=== PATIENT | female | born 1995 | race Caucasian/White ===

== ENCOUNTER 2020-05-12 18:20 | Emergency (ER) | payer OTHER, SELFPAY ==
--- NOTE | 2020-05-12 | US_ITS ---
EXAMINATION: US PELVIS COMPLETE CLINICAL INFORMATION: Right-sided pain. COMPARISON: None. TECHNIQUE: Real-time grayscale and Doppler ultrasound of the pelvis was performed using transabdominal and transvaginal approaches. FINDINGS: The uterus is of normal size and echogenicity measuring 6.2 x 2.4 x 3.5 cm. The uterus is anteverted. A regular homogeneous endometrial echo is identified measuring 0.1 cm. Both ovaries are of normal size and echogenicity. The right ovary measures 2.6 x 1.5 x 1.8 cm for a volume of 4 mL. No ovarian or adnexal masses are seen on the right. With color Doppler imaging, normal arterial and venous waveforms are seen in the right ovary. The left ovary measures 2.2 x 2.1 x 2.5 cm for a volume of 6 mL. No ovarian or adnexal masses are seen on the left. With color Doppler imaging, normal arterial and venous waveforms are seen in the left ovary. There is no pelvic free fluid. IMPRESSION: 1. Unremarkable pelvic ultrasound.
--- NOTE | 2020-05-12 | CT_ITS ---
EXAMINATION: CT ABDOMEN AND PELVIS WITH CONTRAST CLINICAL INFORMATION: Right lower quadrant pain COMPARISON: None TECHNIQUE: Multidetector volumetric images were obtained from the superior aspect of the liver through the pubic symphysis following administration 85 mL of Omnipaque 350 intravenous contrast. Sagittal and coronal reformatted images were obtained on the technologist's workstation. Oral contrast: No This CT examination was performed using dose optimization techniques as appropriate, variously including the following: *Automated exposure control *Adjustment of mA and/or kV according to patient size (this includes techniques or standardized protocols for targeted exams where dose is matched to indication/reason for exam; i.e. extremities or head) *Use of iterative reconstruction technique DLP: 568 mGy-cm FINDINGS: LUNG BASES: The visualized lung bases are unremarkable. LIVER, GALLBLADDER, AND BILIARY TREE: The liver is normal in size, shape, and attenuation. No focal hepatic lesion or biliary ductal dilatation is present. Cholecystectomy. PANCREAS: Unremarkable. SPLEEN: Unremarkable. ADRENAL GLANDS: Unremarkable. KIDNEYS AND URETERS: The kidneys are normal in size, shape, and attenuation. No hydronephrosis, hydroureter, or calculi seen. No perinephric stranding. BLADDER: Unremarkable. GASTROINTESTINAL TRACT: The stomach is unremarkable. Normal caliber small bowel. There is no obstruction. No colonic wall thickening or acute inflammatory change. Normal appendix. No free air or free fluid. ABDOMINAL WALL: No significant hernia is appreciated. LYMPH NODES: Normal. VASCULAR: Unremarkable. PELVIC VISCERA: The uterus and adnexa are unremarkable. OSSEOUS STRUCTURES: No acute or suspicious osseous abnormality. IMPRESSION: No acute findings of the abdomen or pelvis. No inflammatory changes. Normal appendix.
[2020-05-12 19:16] VITALS: BP 138/91; PULSE 83; RESP 16; TEMP 36.9; O2SAT 99; BMI 29.2
--- NOTE | 2020-05-12 19:22 | ED_ITS ---
HPI - Abdominal Pain General Chief Complaint: Abdominal Pain Stated Complaint: abdominal pain Time Seen by Provider: 05/12/20 19:17 Source: patient Mode of arrival: ambulatory History of Present Illness HPI narrative: patient with right lower quadrant abdominal pain for 1 day. Positive nausea. No diarrhea no vomiting. No fevers no chills. Patient states of mild vaginal spotting however no dysuria or hematuria dysuria denies trauma n onradiating MD elicited complaint: abdominal pain Onset (ago): day(s) ( 1 day) Pain Consistency: constant Location: RLQ Severity: moderate Pain scale (0-10): 5 Quality: sharp Associated symptoms: nausea Related Data Patient : No Allergies Allergy/AdvReac Type Severity Reaction Status Date / Time No Known Allergies Allergy Unverified 04/21/20 17:01 Review of Systems Comments: Constitutional : No Weight loss, No Fever, No Chills, No Night Sweats, No Fatigue, No Malaise ENT/Mouth : No Hearing loss, No Ear Pain, No Nasal Congestion, No Sinus Pain, No Hoarseness, No sore throat, No Rhinorrhea, No Swallowing Difficulty Eyes: No Eye Pain, No Swelling, No Redness, No Foreign Body, No Discharge, No Vision Changes Cardiovascular : No Chest Pain, No SOB, No Dyspnea on Exertion, No Orthopnea, No Edema, No Palpitations Respiratory : No Cough, No Sputum, No Wheezing, No Smoke Exposure, No Dyspnea Gastrointestinal : positive Nausea, No Vomiting, No Diarrhea, No Constipation, positive abdominal Pain, No Hematochezia, No Melena Genitourinary : mild bleeding, No Dysuria, No Urinary Frequency, No Hematuria, No Urinary Incontinence, No Urgency, No Flank Pain, No Urinary Flow Changes, No Hesitancy Musculoskeletal : No joint pain, No Myalgias, No Joint Swelling Skin : No Skin Lesions, No rash Neuro : No Weakness, No Numbness, No Paresthesias, No Loss of Consciousness, No Dizziness, No Headache Psych : No Anxiety/Panic, No Depression, No SI/HI/AH/VH, No Social Issues, Heme/Lymph: No Bruising, No Bleeding,No Lymphadenopathy Endocrine : No Polyuria, No Polydipsia, No Temperature Intolerance Physical Exam Const: Other: Appearance: Alert. Oriented X3. No acute distress. Eyes: Pupils equal, round and reactive to light. ENT: Pharynx normal. Neck: Normal inspection. Neck supple. No lymph nodes noted. No crepitus CVS: Normal heart rate and rhythm. Pulses normal. Normal S1 and S2 Respiratory: No respiratory distress. Breath sounds normal. No Wheezing. No rales Abdomen: Soft and positive tender right lower quadrant. No rigidity. No distention. good BS x4 Skin: Skin warm and dry. Normal skin color. Normal skin turgor. Extremities: No lower extremity edema. No lower extremity edema. No Lacerations. No Rash Neuro: Oriented X 3. No motor deficit. No sensory deficit. Moving all extermities. No slurred speech. MDM - Abdominal Pain Differential Diagnosis Differential diagnosis narrative:: diverticulitis, appendicitis, ovarian cyst, ovarian torsion PMFSH Past Medical History Medical History FH: cholecystectomy Surgical History History of cholecystectomy Social History Social History (Updated 05/12/20 @ 19:24 by Jovon Jackson DO) Household Members: Family
[2020-05-12 19:47] LABS: MANUAL DIFF FLAG NO
[2020-05-12 19:48] LABS: Basophils Percent Auto 0.2 % (0-2); Eosinophils Absolute Auto 0.1 X10*3/uL (0.0-0.4); Eosinophils Percent Auto 0.6 % (0-4); Hematocrit 41.3 % (37-47); Hemoglobin 13.6 g/dl (12.0-16.0); Imm Gran Abs Auto 0.01 X10*3/uL (0.00-0.03); Imm Gran Pct Auto 0.1 % (0.0-0.4); Lymphocytes Absolute Auto 2.7 X10*3/uL (1.2-4.9); Lymphocytes Percent Auto 31.8 % (20-40); Mean Corpuscular HGB Conc 32.9 g/dl (31.0-35.0); Mean Corpuscular Hemoglobin 27.2 pg (27.0-33.0); Mean Corpuscular Volume 82.6 fL (80-98); Monocytes Absolute Auto 0.5 X10*3/uL (0.1-1.2); Monocytes Percent Auto 6.1 % (2-11); Neutrophils Absolute Auto 5.2 X10*3/uL (2.0-8.3); Neutrophils Percent Auto 61.2 % (45-73); Platelet Count 271 X10*3/uL (160-400); Red Cell Distribution Width 11.8 % (11.0-16.0); White Blood Count 8.5 X10*3/uL (4.8-10.8)
[2020-05-12] MEDS: 0.9 % Sodium Chloride 1,000 ML 999 ML IVCONT (19:48)
[2020-05-12] MEDS: ondansetron HCL 4 MG/2 ML VIAL IVPUSH (19:48)
[2020-05-12 19:52] LABS: UPreg QC Valid YES; Urine Pregnancy NEGATIVE (NEGATIVE)
[2020-05-12 20:12] VITALS: BP 120/70; PULSE 89; RESP 18; TEMP 36.6; O2SAT 99
[2020-05-12 20:14] LABS: Alanine Aminotransferase 11 U/L (0-31); Albumin Level 4.9 g/dL (3.5-5.0); Alkaline Phosphatase 70 U/L (39-117); Anion Gap 14 (12-20); Aspartate Amino Transferase 13 U/L (5-31); Bilirubin Direct 0.2 mg/dL (0.0-0.5); Bilirubin Total 0.5 mg/dL (0.0-1.0); Blood Urea Nitrogen 8 mg/dL (9-16); Calcium 9.8 mg/dL (8.4-10.2); Carbon Dioxide 23 mmol/L (22-29); Chloride 106 mmol/L (96-108); Creatinine Clr Calc Pharmacy 119.3; Estimated Glomerular Filt Rate > 60; Glucose Random 90 mg/dL (60-115); Lipase 8 U/L (8-78); Potassium 4.1 mmol/l (3.3-5.1); Sodium 139 mmol/L (135-145); Total Protein 8.3 g/dL (6.5-8.0)
[2020-05-12 20:51] LABS: Glucose Urine UA NEG (NEG); Leukocyte Esterase Urine TRACE (NEG); Nitrite Urine NEG (NEG); PH 6.5 (5.0-8.0); Urine Blood 2+ (NEG); Urine Ketones NEG (NEG); Urine Protein NEG (NEG-TRACE)
[2020-05-12 20:52] LABS: Appearance Urine CLEAR; Color Urine YELLOW
[2020-05-12 21:01] LABS: Bacteria Urine 1+ /LPF; Squamous Epithelial Cell Urine 3+ /LPF
[2020-05-12 22:00] VITALS: RESP 18
[2020-05-12 23:28] VITALS: BP 104/71; PULSE 74; RESP 16; TEMP 36.7; O2SAT 97
[2020-05-12] MEDS: Ketorolac Tromethamine 30 MG/ML VIAL IVPUSH (23:30)
[2020-05-13] MEDS: iohexoL 350 MG/ML 100 ML INFUS..BTL 85 ML IV (00:18)
== END 2020-05-13 00:51 | disposition home or self-care (01) ==
PROVIDERS: Emergency Provider Emergency Medicine; PCP Internal Medicine
DX: R10.31 Right lower quadrant pain (principal); Z90.49 Acquired absence of other specified parts of digestive tract
CPT/HCPCS: 36415; 74177; 76830; 76856; 80048; 80076; 81001; 81025; 83690; 85025; 87086; 93975; 96361; 96374; 96375; 99284; J1885; J2405

== ENCOUNTER 2020-05-27 14:24 | Outpatient (REF) | payer OTHER, SELFPAY | END 2020-05-27 14:25 | disposition home or self-care (01) | LOC: HO.LAB 14:24 | PROVIDERS: Visit Provider Internal Medicine | DX: Z20.828 Contact with and (suspected) exposure to other viral communicable diseases (principal) | CPT/HCPCS: 87635 ==

== ENCOUNTER 2020-11-01 15:50 | Outpatient (REF) | payer OTHER, SELFPAY ==
[2020-11-02 09:31] LABS: SARS COV2 PCR INHOUSE POSITIVE (Negative)
== END 2020-11-01 15:51 | disposition home or self-care (01) ==
LOC: HO.LAB 15:50
PROVIDERS: Visit Provider Internal Medicine
DX: Z20.822 Contact with and (suspected) exposure to COVID-19 (principal)
CPT/HCPCS: C9803; U0003

== ENCOUNTER 2020-11-05 18:19 | Emergency (ER) | payer OTHER, SELFPAY ==
--- NOTE | ~2020-11-05 | XR_ITS ---
EXAMINATION: XR CHEST CLINICAL INFORMATION: Left-sided chest pain. COVID positive COMPARISON: Chest x-rays of 07/06/2013 TECHNIQUE: Frontal view of the chest was obtained. FINDINGS: Multiple cardiac leads and wires overlie the chest. Metallic bilateral nipple rings are in place. Cardiac mediastinal silhouette is normal. No abnormal tracheal deviation. The lungs are mildly hyperinflated. No focal consolidation, groundglass opacities, changes of congestion or pleural effusions are seen. No evidence of pneumothorax. Osseous structures and visualized upper abdomen are unremarkable. XR/XR chest 1V IMPRESSION: No radiographic evidence of pneumonia at this time. No acute pulmonary process noted.
[2020-11-05 18:48] VITALS: BP 126/80; PULSE 92; RESP 18; TEMP 37.1; O2SAT 98; BMI 28.3
--- NOTE | 2020-11-05 18:51 | ECG_ITS ---
Test Reason : SHORTNESS OF BREATH Blood Pressure : / mmHG Vent. Rate : 072 BPM Atrial Rate : 072 BPM P-R Int : 116 ms QRS Dur : 094 ms QT Int : 364 ms P-R-T Axes : 055 035 044 degrees QTc Int : 398 ms Normal sinus rhythm Normal ECG When compared to the previous EKG of No significant changes seen Referred By: Generic ED Physician Electronically Signed By:Sameer Armendariz
--- NOTE | 2020-11-05 19:24 | ED.GENADULT ---
HPI - General Adult General Chief complaint: Upper Respiratory Symptoms Stated complaint: sob,chest pain,covid exposure Time Seen by Provider: 11/05/20 19:01 Source: patient Mode of arrival: ambulatory Limitations: no limitations History of Present Illness HPI narrative: Patient comes to the emergency room complaining of left-sided chest pain, headache, body aches for 1 day. Patient tested positive for COVID-19 on 11/02/2019. Patient denies fever, no chills, states she has mild shortness of breath, no vomiting or diarrhea. Related Data Previous Rx's Medication Instructions Recorded ergocalciferol (vitamin D2) 1,250 1,250 mcg PO QWEEK #4 cap 07/19/ mcg (50,000 unit) capsule Allergies Allergy/AdvReac Type Severity Reaction Status Date / Time No Known Allergies Allergy Verified 11/05/20 18:48 Review of Systems Review of Systems: Constitutional : No Weight loss, No Fever, No Chills, No Night Sweats, fcomplaining of general malaise ENT/Mouth : No Hearing loss, No Ear Pain, No Nasal Congestion, No Sinus Pain, No Hoarseness, No sore throat, No Rhinorrhea, No Swallowing Difficulty Eyes: No Eye Pain, No Swelling, No Redness, No Foreign Body, No Discharge, No Vision Changes Cardiovascular : Complaining of left-sided Chest Pain, complaining of, dyspnea, no edema, no palpitations Respiratory : No Cough, No Sputum, No Wheezing, No Smoke Exposure Gastrointestinal : No Nausea, No Vomiting, No Diarrhea, No Constipation, No abdominal Pain, No Hematochezia, No Melena Genitourinary : no irregular bleeding, No Dysuria, No Urinary Frequency, No Hematuria, No Urinary Incontinence, No Urgency, No Flank Pain, No Urinary Flow Changes, No Hesitancy Musculoskeletal : No joint pain, No Myalgias, No Joint Swelling Skin : No Skin Lesions, No rash Neuro : No Weakness, No Numbness, No Paresthesias, No Loss of Consciousness, No Dizziness, No Headache Psych : No Anxiety/Panic, No Depression, No SI/HI/AH/VH, No Social Issues, Heme/Lymph: No Bruising, No Bleeding,No Lymphadenopathy Endocrine : No Polyuria, No Polydipsia, No Temperature Intolerance PMFSH Past Medical History Medical History Ear discomfort FH: cholecystectomy Surgical History History of breast lump/mass excision History of cholecystectomy Family History Family History Father No problems noted. Mother No problems noted. Paternal Grandmother Diabetes Maternal Uncle Diabetes Cancer Brother No problems noted. Sister No problems noted. Social History Social History Household Members: Family Alcohol intake: current Alcohol intake frequency: holidays/special occasions only Smoking Status: Never smoker Advance Directives: No Advance Directives Information Provided: No Physical Exam Vital Signs: Vital Signs: Last Vital Signs Temp 98.4 F 11/05/20 19:53 Pulse 76 11/05/20 19:53 Resp 16 11/05/20 19:53 BP 116/66 11/05/20 19:53 Pulse Ox 99 11/05/20 19:53 Body Mass Index 28.3 Appearance: Alert. Oriented X3. No acute distress. Anxious Eyes: Pupils equal, round and reactive to light. ENT: Pharynx normal. Neck: Normal inspection. Neck supple. No lymph nodes noted. No crepitus CVS: Normal heart rate and rhythm. Pulses normal. Normal S1 and S2 Respiratory: No respiratory distress. Breath sounds normal. No Wheezing. No rales Abdomen: Soft and nontender. No rigidity. No distention. good BS x4 Skin: Skin warm and dry. Normal skin color. Normal skin turgor. Extremities: No lower extremity edema. No lower extremity edema. No Lacerations. No Rash Neuro: Oriented X 3. No motor deficit. No sensory deficit. Moving all extermities. No slurred speech. Course Course Course Narrative: Patient's last within normal limits, D-dimer negative, troponin negative, chest x-ray negative Oxygen saturation 99% on room air. Patient instructed to follow-up with her primary care physician. Medical Decision Making Lab Data Result diagrams: 11/05/20 20:04 11/05/20 20:04 Labs: Lab Results 11/05/20 11/05/20 11/05/20 Range/Units 20:04 20:04 20:04 WBC 7.9 (4.8-10.8) X10*3/uL RBC 4.78 (4.20-5.50) X10*6/uL Hgb 12.8 (12.0-16.0) g/dl Hct 40.8 (37-47) % MCV 85.4 (80-98) fL MCH 26.8 L (27.0-33.0) pg MCHC 31.4 (31.0-35.0) g/dl RDW 12.2 (11.0-16.0) % Plt Count 216 (160-400) X10*3/uL MPV 9.9 (9.4-12.3) fL Immature Gran % (Auto) 0.3 (0.0-0.4) % Neut % (Auto) 70.5 (45-73) % Lymph % (Auto) 21.7 (20-40) % [place] % (Auto) 7.0 (2-11) % Eos % (Auto) 0.4 (0-4) % Baso % (Auto) 0.1 (0-2) % Lymph # (Auto) 1.7 (1.2-4.9) X10*3/uL [place] # (Auto) 0.6 (0.1-1.2) X10*3/uL Eos # (Auto) 0.0 (0.0-0.4) X10*3/uL Baso # (Auto) 0.0 (0.0-0.2) X10*3/uL Abs Immat Gran (auto) 0.02 (0.00-0.03) X10*3/uL Absolute Neuts (auto) 5.6 (2.0-8.3) X10*3/uL Absolute Nucleated RBC 0.000 (0.0-0.012) X10*3/uL Nucleated RBC % (auto) 0.0 (0.0-0.2) /100WBC D-Dimer < 200 NG/ML Sodium 138 (135-145) mmol/L Potassium 4.4 (3.3-5.1) mmol/L Chloride 106 (96-108) mmol/L Carbon Dioxide 26 (22-29) mmol/L Anion Gap 10 L (12-20) BUN 11 (9-16) mg/dL Creatinine 0.75 (0.5-1.4) mg/dL Estim Creat Clear Calc 110.3 Estimated GFR > 60 Random Glucose 93 (60-115) mg/dL Calcium 8.2 L D (8.4-10.2) mg/dL Total Bilirubin 0.3 (0.0-1.0) mg/dL Direct Bilirubin < 0.2 (0.0-0.5) mg/dL AST 13 (5-31) U/L ALT 10 (0-31) U/L Alkaline Phosphatase 66 (39-117) U/L Troponin I High Sens (<3.5-17.0) ng/L B-Natriuretic Peptide (<100) pg/mL Total Protein 7.1 (6.5-8.0) g/dL Albumin 3.9 D (3.5-5.0) g/dL 11/05/20 Range/Units 20:04 WBC (4.8-10.8) X10*3/uL RBC (4.20-5.50) X10*6/uL Hgb (12.0-16.0) g/dl Hct (37-47) % MCV (80-98) fL MCH (27.0-33.0) pg MCHC (31.0-35.0) g/dl RDW (11.0-16.0) % Plt Count (160-400) X10*3/uL MPV (9.4-12.3) fL Immature Gran % (Auto) (0.0-0.4) % Neut % (Auto) (45-73) % Lymph % (Auto) (20-40) % [place] % (Auto) (2-11) % Eos % (Auto) (0-4) % Baso % (Auto) (0-2) % Lymph # (Auto) (1.2-4.9) X10*3/uL [place] # (Auto) (0.1-1.2) X10*3/uL Eos # (Auto) (0.0-0.4) X10*3/uL Baso # (Auto) (0.0-0.2) X10*3/uL Abs Immat Gran (auto) (0.00-0.03) X10*3/uL Absolute Neuts (auto) (2.0-8.3) X10*3/uL Absolute Nucleated RBC (0.0-0.012) X10*3/uL Nucleated RBC % (auto) (0.0-0.2) /100WBC D-Dimer NG/ML Sodium (135-145) mmol/L Potassium (3.3-5.1) mmol/L Chloride (96-108) mmol/L Carbon Dioxide (22-29) mmol/L Anion Gap (12-20) BUN (9-16) mg/dL Creatinine (0.5-1.4) mg/dL Estim Creat Clear Calc Estimated GFR Random Glucose (60-115) mg/dL Calcium (8.4-10.2) mg/dL Total Bilirubin (0.0-1.0) mg/dL Direct Bilirubin (0.0-0.5) mg/dL AST (5-31) U/L ALT (0-31) U/L Alkaline Phosphatase (39-117) U/L Troponin I High Sens < 3.5 (<3.5-17.0) ng/L B-Natriuretic Peptide 11 (<100) pg/mL Total Protein (6.5-8.0) g/dL Albumin (3.5-5.0) g/dL Imaging Data Chest x-ray: Radiologist's impression: Multiple cardiac leads and wires overlie the chest. Metallic bilateral nipple rings are in place. Cardiac mediastinal silhouette is normal. No abnormal tracheal deviation. The lungs are mildly hyperinflated. No focal consolidation, groundglass opacities, changes of congestion or pleural effusions are seen. No evidence of pneumothorax. Osseous structures and visualized upper abdomen are unremarkable. XR/XR chest 1V IMPRESSION: No radiographic evidence of pneumonia at this time. No acute pulmonary process noted. ECG Data Attestation: I personally reviewed and interpreted this ECG as follows: (Sinus rhythm, heart rate 72, no ST segment depression or elevation, no T-wave inversion) Discharge Plan Discharge Clinical Impression: Pleurisy Patient Disposition: Home, Self-Care Instructions: Pleurisy (ED) Additional Instructions: Please follow-up with your primary care physician tomorrow. If you have any worsening or new symptoms, please return to the emergency room or call 911 Prescriptions: No Action ergocalciferol (vitamin D2) 1,250 mcg (50,000 unit) capsule 1,250 mcg PO QWEEK Qty: 4 RF: 3
[2020-11-05 19:53] VITALS: BP 116/66; PULSE 76; RESP 16; TEMP 36.9; O2SAT 99
[2020-11-05 20:14] LABS: MANUAL DIFF FLAG NO
[2020-11-05 20:15] LABS: Basophils Percent Auto 0.1 % (0-2); Eosinophils Percent Auto 0.4 % (0-4); Hematocrit 40.8 % (37-47); Hemoglobin 12.8 g/dl (12.0-16.0); Imm Gran Abs Auto 0.02 X10*3/uL (0.00-0.03); Imm Gran Pct Auto 0.3 % (0.0-0.4); Lymphocytes Absolute Auto 1.7 X10*3/uL (1.2-4.9); Lymphocytes Percent Auto 21.7 % (20-40); Mean Corpuscular HGB Conc 31.4 g/dl (31.0-35.0); Mean Corpuscular Hemoglobin 26.8 pg (27.0-33.0); Mean Corpuscular Volume 85.4 fL (80-98); Mean Platelet Volume 9.9 fL (9.4-12.3); Monocytes Absolute Auto 0.6 X10*3/uL (0.1-1.2); Neutrophils Absolute Auto 5.6 X10*3/uL (2.0-8.3); Neutrophils Percent Auto 70.5 % (45-73); Platelet Count 216 X10*3/uL (160-400); Red Blood Count 4.78 X10*6/uL (4.20-5.50); Red Cell Distribution Width 12.2 % (11.0-16.0); White Blood Count 7.9 X10*3/uL (4.8-10.8)
[2020-11-05 20:45] LABS: Alanine Aminotransferase 10 U/L (0-31); Albumin Level 3.9 g/dL (3.5-5.0); Alkaline Phosphatase 66 U/L (39-117); Anion Gap 10 (12-20); Aspartate Amino Transferase 13 U/L (5-31); Bilirubin Direct < 0.2 mg/dL (0.0-0.5); Bilirubin Total 0.3 mg/dL (0.0-1.0); Blood Urea Nitrogen 11 mg/dL (9-16); Calcium 8.2 mg/dL (8.4-10.2); Carbon Dioxide 26 mmol/L (22-29); Chloride 106 mmol/L (96-108); Creatinine Clr Calc Pharmacy 110.3; Estimated Glomerular Filt Rate > 60; Glucose Random 93 mg/dL (60-115); Potassium 4.4 mmol/L (3.3-5.1); Sodium 138 mmol/L (135-145); Total Protein 7.1 g/dL (6.5-8.0)
[2020-11-05 20:48] LABS: D Dimer < 200 NG/ML
[2020-11-05 20:49] LABS: B Type Natriuretic Peptide 11 pg/mL (<100); Troponin-I High Sensitivity < 3.5 ng/L (<3.5-17.0)
[2020-11-05 21:07] VITALS: BP 115/74; PULSE 71; RESP 16; O2SAT 98
[2020-11-05 22:07] VITALS: BP 106/61; PULSE 69; RESP 16; O2SAT 99
[2020-11-06] VITALS: BP 111/67; PULSE 70; RESP 16; TEMP 37; O2SAT 99
== END 2020-11-06 00:10 | disposition home or self-care (01) ==
PROVIDERS: Emergency Provider Emergency Medicine
DX: R09.1 Pleurisy (principal); Z86.16 Personal history of COVID-19
CPT/HCPCS: 36415; 71045; 80048; 80076; 83880; 84484; 85025; 85379; 93005; 99283; 99284

== ENCOUNTER 2020-11-09 20:23 | Emergency (ER) | payer OTHER, SELFPAY ==
[2020-11-09 21:46] VITALS: BP 122/78; PULSE 79; RESP 18; TEMP 36.9; O2SAT 99; BMI 20.7
--- NOTE | 2020-11-09 22:34 | ED_ITS ---
HPI - SOB/Dyspnea General Chief Complaint: Dyspnea Stated Complaint: Difficulty breathing Time Seen by Provider: 11/09/20 22:34 Source: patient Mode of arrival: ambulatory History of Present Illness HPI Narrative: This is a 25-year-old female without significant past medical history other than being diagnosed with COVID-19 11/01 now presenting for the 2nd time after being seen on Saturday for chest pain and now presenting with complaints onset of shortness of breath at approximately 5:00 p.m.. She denies any history of anxiety and states that this has never happened to her before. Related Data Previous Rx's Medication Instructions Recorded ergocalciferol (vitamin D2) 1,250 1,250 mcg PO QWEEK #4 cap 07/19/ mcg (50,000 unit) capsule Allergies Allergy/AdvReac Type Severity Reaction Status Date / Time No Known Allergies Allergy Verified 11/05/20 18:48 Review of Systems Review of Systems: Pertinent positives and negatives as stated in HPI 10 point review of systems is otherwise negative. PMFSH Past Medical History Source: nursing notes reviewed Medical History Ear discomfort FH: cholecystectomy Surgical History History of breast lump/mass excision History of cholecystectomy Family History Family History Father No problems noted. Mother No problems noted. Paternal Grandmother Diabetes Maternal Uncle Diabetes Cancer Brother No problems noted. Sister No problems noted. Social History Social History Household Members: Family Alcohol intake: current Alcohol intake frequency: holidays/special occasions only Smoking Status: Never smoker Advance Directives: No Advance Directives Information Provided: No Physical Exam Vital Signs: Vital Signs: Last Vital Signs Temp 98.4 F 11/09/20 21:46 Pulse 79 11/09/20 21:46 Resp 18 11/09/20 21:46 BP 122/78 11/09/20 21:46 Pulse Ox 99 11/09/20 21:46 Body Mass Index 20.7 VITAL SIGNS: Reviewed. GENERAL: Well developed, well nourished, in no acute distress. HEAD: Normocephalic/atraumatic EYES: PERRLA, EOMI EARS: Ext canals without abnormality NOSE: Nares patent bilateral OROPHARYNX: no oral lesions noted, posterior pharynx clear, moist mucosa NECK: Supple, no adenopathy LUNGS: Normal breath sounds. No adventitious sounds or accessory muscle use. SpO2<99> CARDIOVASCULAR: Regular rate and rhythm without noted murmurs ABDOMEN: Soft, non-tender, non-distended with bowel sounds. NEUROLOGIC: Alert and oriented x 4. Course Course Course Narrative: This is a 25-year-old female with history and clinical presentation consistent with COVID-19 syndrome and all workup reviewed on 11/05 and felt to be comprehensive as patient was evaluated for both pneumonia/PE/card iac ischemia on Saturday. Patient has no new travel history or symptoms to prompt re-evaluation for PE/pneumonia/cardiac ischemia to include absence of fever/chills/new cough. Patient was reassured and and the thighs with her symptoms but instructed to return home, resume self quarantine, and continue with supportive treatment and to follow up with her primary care provider. Discharge Plan Discharge Clinical Impression: Post viral syndrome, Lab test positive for detection of COVID-19 virus Patient Disposition: Home, Self-Care Instructions: Viral Syndrome (ED), COVID-19 (Coronavirus Disease 2019) (ED) Additional Instructions: Continue with supportive treatment of increased fluid hydration (especially water), [id number] Tylenol/ibuprofen as directed on outside packaging for any body aches/pains. Continue to self quarantine as per [facility] guidelines. Do not hesitate to return the emergency department should you have any acute worsening of symptoms. Prescriptions: No Action ergocalciferol (vitamin D2) 1,250 mcg (50,000 unit) capsule 1,250 mcg PO QWEEK Qty: 4 RF: 3 Referrals: Helen Hankins MD [Primary Care Provider] - 2 days (Re-evaluation for viral syndrome.)
== END 2020-11-09 23:28 | disposition home or self-care (01) ==
PROVIDERS: Emergency Provider Student in an Organized Health Care Education/Training Program; PCP Internal Medicine
DX: G93.3 Postviral and related fatigue syndromes (principal); Z86.16 Personal history of COVID-19
CPT/HCPCS: 99283

== ENCOUNTER 2020-11-15 15:15 | Outpatient (REF) | payer OTHER, SELFPAY ==
[2020-11-15 15:55] LABS: COVID-19 Test Negative (Negative)
== END 2020-11-15 15:16 | disposition home or self-care (01) ==
LOC: HO.LAB 15:15
PROVIDERS: Visit Provider Internal Medicine
DX: Z20.822 Contact with and (suspected) exposure to COVID-19 (principal)
CPT/HCPCS: 36415; 87635; C9803

== ENCOUNTER 2020-11-16 18:02 | Emergency (ER) | payer OTHER, SELFPAY ==
--- NOTE | 2020-11-16 | ECG_ITS ---
Test Reason : CHEST PAIN Blood Pressure : / mmHG Vent. Rate : 092 BPM Atrial Rate : 092 BPM P-R Int : 122 ms QRS Dur : 094 ms QT Int : 352 ms P-R-T Axes : 073 052 052 degrees QTc Int : 435 ms Normal sinus rhythm with sinus arrhythmia Normal ECG When compared with ECG of 05-NOV-2020 19:05, No significant change was found Referred By: Generic ED Physician Electronically Signed By:CARINA GREGORY
--- NOTE | ~2020-11-16 | CT_ITS ---
EXAMINATION: CT ANGIOGRAM OF THE CHEST WITH AND WITHOUT CONTRAST (CT PULMONARY ANGIOGRAM FOR PE) CLINICAL INFORMATION: Reason for Exam chest pain dyspnea COMPARISON: CT abdomen pelvis 05/13/2020 TECHNIQUE: Prior to contrast administration, noncontrast localization images were obtained. Subsequently, multidetector volumetric imaging was performed from the thoracic inlet to below the diaphragms following the administration of 65 mL Omnipaque 350 intravenous contrast. No contrast reaction reported Sagittal, coronal, and MIP oblique sagittal reformatted images were obtained on the CT workstation, uploaded to PACS, and reviewed. This CT examination was performed using dose optimization techniques as appropriate, variously including the following: *Automated exposure control *Adjustment of mA and/or kV according to patient size (this includes techniques or standardized protocols for targeted exams where dose is matched to indication/reason for exam; i.e. extremities or head) *Use of iterative reconstruction technique Total exam dose-length product 237 mGy-cm FINDINGS: QUALITY OF STUDY/CONTRAST BOLUS: Satisfactory. PULMONARY ARTERIES: No central or segmental pulmonary emboli. THORACIC AORTA: No aneurysm or dissection. 2 vessel branching with common origin of the innominate and left carotid artery. LUNG: There is a 10 x 6 mm nodule in the left lower lobe in the posterior costophrenic sulcus central calcification measuring 313 Hounsfield units (7:361). This is unchanged when compared to the 05/13/2020 CT scan. No other lung nodules are seen. PLEURA: No pleural effusion or pneumothorax. MEDIASTINUM: Normal heart size. No pericardial effusion. Some small hilar nodes are present with one small infrahilar node on the left containing focal calcium again (7:216). No gross hilar or mediastinal lymphadenopathy. Increased density in the mediastinum represents residual thymic tissue. No evidence of septal bowing or right heart strain. CHEST WALL/AXILLA: No axillary or internal mammary lymphadenopathy. OSSEOUS STRUCTURES: No acute or suspicious osseous abnormality. UPPER ABDOMEN: Unremarkable. No reflux of contrast into the hepatic veins to suggest elevated right heart pressures. CT/CT angio chest PE protocol IMPRESSION: 1. No evidence of pulmonary emboli. 2. 10 mm left lower lobe lung nodule with central calcification along with calcified left infrahilar lymph node consistent with granulomatous disease. VTE: negative
[2020-11-16 18:54] VITALS: BP 140/90; PULSE 87; RESP 16; TEMP 36.8; O2SAT 99; BMI 28.0
--- NOTE | 2020-11-16 21:45 | ED_ITS ---
HPI - Chest Pain General Chief Complaint: Chest Pain Stated Complaint: cp Time Seen by Provider: 11/16/20 21:37 Source: patient Mode of arrival: ambulatory Limitations: no limitations History of Present Illness HPI narrative: 25 yo female had COVID in October c/o chest pain since then now pain in both arms, also c/o dyspnea even before COVID - noted she thinks she woke up last night because she couldn't breathe, denies anxiety complaint: chest pain Onset (ago): week(s) (several ) Timing of current episode: episodic Prior episodes: No Onset: during rest and during exertion Pain location: substernal and left chest Pain radiation: right arm and left arm Severity: moderate Quality: heaviness and sharp Relieving factors: nothing Exacerbating factors: nothing Context: recent illness Associated symptoms: dyspnea Treatment prior to arrival: none Related Data Previous Rx's Medication Instructions Recorded ergocalciferol (vitamin D2) 1,250 1,250 mcg PO QWEEK #4 cap 07/19/ mcg (50,000 unit) capsule Allergies Allergy/AdvReac Type Severity Reaction Status Date / Time No Known Allergies Allergy Verified 11/11/20 15:29 Review of Systems Review of Systems: Constitutional : No Weight loss, No Fever, No Chills ENT/Mouth : No sore throat, No Rhinorrhea Eyes: No Eye Pain, No Swelling Cardiovascular : pos Chest Pain, pos SOB, no Dyspnea on Exertion, No Orthopnea, No Edema, No Palpitations Respiratory : No Cough, No Sputum Gastrointestinal : no Nausea, No Vomiting, No Diarrhea, No abdominal Pain, No Hematochezia, No Melena Genitourinary : No Dysuria, No Urinary Frequency Musculoskeletal : No joint pain, No Myalgias, No Joint Swelling Skin : No Skin Lesions, No rash Neuro : No Weakness, No Numbness, No Dizziness, No Headache Psych : No Anxiety/Panic, No Depression Heme/Lymph: No Bruising, No Lymphadenopathy Endocrine : No Polyuria, No Polydipsia All other systems reviewed and are negative [facility] Past Medical History Attestation statement: The following information was validated with the patient. Medical History Ear discomfort FH: cholecystectomy Surgical History History of breast lump/mass excision History of cholecystectomy Family History Family History Father No problems noted. Mother No problems noted. Paternal Grandmother Diabetes Maternal Uncle Diabetes Cancer Brother No problems noted. Sister No problems noted. Social History Social History Household Members: Family Alcohol intake: never Smoking Status: Never smoker Use of substances other than those prescribed or required for medical reasons: No Advance Directives: No Physical Exam Vital Signs: Vital Signs: Last Vital Signs Temp 98.1 F 11/16/20 23:32 Pulse 63 11/16/20 23:32 Resp 16 11/16/20 23:32 BP 113/64 11/16/20 23:32 Pulse Ox 99 11/16/20 23:32 Body Mass Index 28.0 Appearance: Alert. Oriented X3. No acute distress. Eyes: Pupils equal, round and reactive to light. ENT: Pharynx normal. Neck: Normal inspection. Neck supple. CVS: Normal heart rate and rhythm. Pulses normal. Respiratory: No respiratory distress. Breath sounds normal. Abdomen: Soft and nontender. Skin: Skin warm and dry. Normal skin color. Normal skin turgor. Extremities: No lower extremity edema. No calf ttp Neuro: Oriented X 3. No motor deficit. No sensory deficit. Course Course Course Narrative: negative workup stable for DC MDM - Chest Pain MDM Narrative Medical decision making narrative: 25 yo female not on OCPs here with c/o chest pain since Covid in October but also dyspnea for months - feels she woke up due to lack of breathing last night, denies GERD symptoms, sleep apnea, denies anxiety - at this time given recent COVID and repeat visits for dyspnea/CP will evaluate with CT scan for VTE/lung damage, doubt ACS Lab Data Result diagrams: 11/16/20 22:12 11/16/20 22:12 Labs: Lab Results 11/16/20 11/16/20 11/16/20 Range/Units 22:12 22:12 22:12 WBC 9.3 (4.8-10.8) X10*3/uL RBC 4.35 (4.20-5.50) X10*6/uL Hgb 11.8 L (12.0-16.0) g/dl Hct 36.0 L (37-47) % MCV 82.8 (80-98) fL MCH 27.1 (27.0-33.0) pg MCHC 32.8 (31.0-35.0) g/dl RDW 11.9 (11.0-16.0) % Plt Count 227 (160-400) X10*3/uL MPV 9.9 (9.4-12.3) fL Immature Gran % (Auto) 0.2 (0.0-0.4) % Neut % (Auto) 61.8 (45-73) % Lymph % (Auto) 32.4 (20-40) % [place] % (Auto) 4.9 (2-11) % Eos % (Auto) 0.5 (0-4) % Baso % (Auto) 0.2 (0-2) % Lymph # (Auto) 3.0 (1.2-4.9) X10*3/uL [place] # (Auto) 0.5 (0.1-1.2) X10*3/uL Eos # (Auto) 0.1 (0.0-0.4) X10*3/uL Baso # (Auto) 0.0 (0.0-0.2) X10*3/uL Abs Immat Gran (auto) 0.02 (0.00-0.03) X10*3/uL Absolute Neuts (auto) 5.7 (2.0-8.3) X10*3/uL Absolute Nucleated RBC 0.000 (0.0-0.012) X10*3/uL Nucleated RBC % (auto) 0.0 (0.0-0.2) /100WBC Hold Blue Top SEE NOTE Sodium 138 (135-145) mmol/L Potassium 3.5 D (3.3-5.1) mmol/L Chloride 107 (96-108) mmol/L Carbon Dioxide 23 (22-29) mmol/L Anion Gap 12 (12-20) BUN 11 (9-16) mg/dL Creatinine 0.63 (0.5-1.4) mg/dL Estim Creat Clear Calc 130.6 Estimated GFR > 60 Random Glucose 82 (60-115) mg/dL Calcium 9.0 D (8.4-10.2) mg/dL Magnesium 1.9 (1.6-2.6) mg/dL Total Bilirubin 0.4 (0.0-1.0) mg/dL Direct Bilirubin 0.2 (0.0-0.5) mg/dL AST 11 (5-31) U/L ALT 7 (0-31) U/L Alkaline Phosphatase 63 (39-117) U/L Troponin I High Sens (<3.5-17.0) ng/L Total Protein 6.7 (6.5-8.0) g/dL Albumin 3.9 (3.5-5.0) g/dL Lipase 9 (8-78) U/L Urine Test (NEGATIVE) 11/16/20 11/16/20 Range/Units 22:12 23:34 WBC (4.8-10.8) X10*3/uL RBC (4.20-5.50) X10*6/uL Hgb (12.0-16.0) g/dl Hct (37-47) % MCV (80-98) fL MCH (27.0-33.0) pg MCHC (31.0-35.0) g/dl RDW (11.0-16.0) % Plt Count (160-400) X10*3/uL MPV (9.4-12.3) fL Immature Gran % (Auto) (0.0-0.4) % Neut % (Auto) (45-73) % Lymph % (Auto) (20-40) % [place] % (Auto) (2-11) % Eos % (Auto) (0-4) % Baso % (Auto) (0-2) % Lymph # (Auto) (1.2-4.9) X10*3/uL [place] # (Auto) (0.1-1.2) X10*3/uL Eos # (Auto) (0.0-0.4) X10*3/uL Baso # (Auto) (0.0-0.2) X10*3/uL Abs Immat Gran (auto) (0.00-0.03) X10*3/uL Absolute Neuts (auto) (2.0-8.3) X10*3/uL Absolute Nucleated RBC (0.0-0.012) X10*3/uL Nucleated RBC % (auto) (0.0-0.2) /100WBC Hold Blue Top Sodium (135-145) mmol/L Potassium (3.3-5.1) mmol/L Chloride (96-108) mmol/L Carbon Dioxide (22-29) mmol/L Anion Gap (12-20) BUN (9-16) mg/dL Creatinine (0.5-1.4) mg/dL Estim Creat Clear Calc Estimated GFR Random Glucose (60-115) mg/dL Calcium (8.4-10.2) mg/dL Magnesium (1.6-2.6) mg/dL Total Bilirubin (0.0-1.0) mg/dL Direct Bilirubin (0.0-0.5) mg/dL AST (5-31) U/L ALT (0-31) U/L Alkaline Phosphatase (39-117) U/L Troponin I High Sens < 3.5 (<3.5-17.0) ng/L Total Protein (6.5-8.0) g/dL Albumin (3.5-5.0) g/dL Lipase (8-78) U/L Urine Test NEGATIVE (NEGATIVE) ECG Data ECG #1: Attestation: I personally reviewed and interpreted this ECG as follows: ECG interpretation date: 11/16/20 ECG interpretation time: 22:41 Interpretation: Rate: 92 Rhythm: NSR [address]: normal Normal P waves. Normal VARUN. Normal QRS complex. ST T wave : normal no JODI qTC: normal prior studies: no acute ischemia The study has been interpreted contemporaneously by me. . Discharge Plan Discharge Clinical Impression: Atypical chest pain, Chronic dyspnea Patient Disposition: Home, Self-Care Instructions: Chest Pain (ED), Dyspnea (ED) Additional Instructions: return to ED for any worsening symptoms or concerns CT/CT angio chest PE protocol IMPRESSION: 1. No evidence of pulmonary emboli. 2. 10 mm left lower lobe lung nodule with central calcification along with calcified left infrahilar lymph node consistent with granulomatous disease. VTE: negative Prescriptions: No Action ergocalciferol (vitamin D2) 1,250 mcg (50,000 unit) capsule 1,250 mcg PO QWEEK Qty: 4 RF: 3 Referrals: Evert Stu,Trinity, MD [Primary Care Provider] - 2 days (possible sleep study vs. pulmonology referral) Stand Alone Forms: Work/School Release
--- NOTE | 2020-11-16 21:45 | ED_ITS ---
HPI - Chest Pain General Chief Complaint: Chest Pain Stated Complaint: cp Time Seen by Provider: 11/16/20 21:37 Source: patient and old records reviewed Mode of arrival: ambulatory Limitations: no limitations History of Present Illness HPI narrative: 25 yo female with CP/SOB bilateral arm pain for months noted CP since COVID at end of October, felt like she was gasping in her sleep seen for same recently MD complaint: chest pain Pertinent past history: other (COVID) Onset (ago): month(s) Timing of current episode: episodic Prior episodes: Yes Onset: during rest and during exertion Pain location: substernal and left chest Pain radiation: right arm and left arm Severity: moderate Quality: sharp Relieving factors: nothing Exacerbating factors: nothing Context: recent illness Associated symptoms: dyspnea Treatment prior to arrival: none Related Data Previous Rx's Medication Instructions Recorded ergocalciferol (vitamin D2) 1,250 1,250 mcg PO QWEEK #4 cap /15/20 mcg (50,000 unit) capsule Allergies Allergy/AdvReac Type Severity Reaction Status Date / Time No Known Allergies Allergy Verified 11/11/20 15:29 Review of Systems Review of Systems: Constitutional : No Weight loss, No Fever, No Chills ENT/Mouth : No sore throat, No Rhinorrhea Eyes: No Eye Pain, No Swelling Cardiovascular : pos Chest Pain, pos SOB, no Dyspnea on Exertion, No Orthopnea, No Edema, No Palpitations Respiratory : No Cough, No Sputum Gastrointestinal : no Nausea, No Vomiting, No Diarrhea, No abdominal Pain, No Hematochezia, No Melena Genitourinary : No Dysuria, No Urinary Frequency Musculoskeletal : No joint pain, No Myalgias, No Joint Swelling Skin : No Skin Lesions, No rash Neuro : No Weakness, No Numbness, No Dizziness, No Headache Psych : No Anxiety/Panic, No Depression Heme/Lymph: No Bruising, No Lymphadenopathy Endocrine : No Polyuria, No Polydipsia All other systems reviewed and are negative [facility] Past Medical History Medical History Ear discomfort FH: cholecystectomy Surgical History History of breast lump/mass excision History of cholecystectomy Family History Family History Father No problems noted. Mother No problems noted. Paternal Grandmother Diabetes Maternal Uncle Diabetes Cancer Brother No problems noted. Sister No problems noted. Social History Social History Household Members: Family Alcohol intake: never Smoking Status: Never smoker Use of substances other than those prescribed or required for medical reasons: No Advance Directives: No Physical Exam Vital Signs: Vital Signs: Last Vital Signs Temp 98.1 F 11/16/20 23:32 Pulse 63 11/16/20 23:32 Resp 16 11/16/20 23:32 BP 113/64 11/16/20 23:32 Pulse Ox 99 11/16/20 23:32 Body Mass Index 28.0 Appearance: Alert. Oriented X3. No acute distress. Eyes: Pupils equal, round and reactive to light. ENT: Pharynx normal. Neck: Normal inspection. Neck supple. CVS: Normal heart rate and rhythm. Pulses normal. Respiratory: No respiratory distress. Breath sounds normal. Abdomen: Soft and nontender. Skin: Skin warm and dry. Normal skin color. Normal skin turgor. Extremities: No lower extremity edema. No calf ttp Neuro: Oriented X 3. No motor deficit. No sensory deficit. MDM - Chest Pain MDM Narrative Medical decision making narrative: 25 yo female not on OCPs here with CP and dyspnea since COVID has had negative workups felt like she was gasping in her sleep given recent COVID could have lung disease vs PE, ACS and dissection seem unlikely at this time labs, CTA;PE ordered, dispo per results and findings. Lab Data Result diagrams: 11/16/20 22:12 11/16/20 22:12 Labs: Lab Results 11/16/20 11/16/20 11/16/20 Range/Units 22:12 22:12 22:12 WBC 9.3 (4.8-10.8) X10*3/uL RBC 4.35 (4.20-5.50) X10*6/uL Hgb 11.8 L (12.0-16.0) g/dl Hct 36.0 L (37-47) % MCV 82.8 (80-98) fL MCH 27.1 (27.0-33.0) pg MCHC 32.8 (31.0-35.0) g/dl RDW 11.9 (11.0-16.0) % Plt Count 227 (160-400) X10*3/uL MPV 9.9 (9.4-12.3) fL Immature Gran % (Auto) 0.2 (0.0-0.4) % Neut % (Auto) 61.8 (45-73) % Lymph % (Auto) 32.4 (20-40) % [place] % (Auto) 4.9 (2-11) % Eos % (Auto) 0.5 (0-4) % Baso % (Auto) 0.2 (0-2) % Lymph # (Auto) 3.0 (1.2-4.9) X10*3/uL [place] # (Auto) 0.5 (0.1-1.2) X10*3/uL Eos # (Auto) 0.1 (0.0-0.4) X10*3/uL Baso # (Auto) 0.0 (0.0-0.2) X10*3/uL Abs Immat Gran (auto) 0.02 (0.00-0.03) X10*3/uL Absolute Neuts (auto) 5.7 (2.0-8.3) X10*3/uL Absolute Nucleated RBC 0.000 (0.0-0.012) X10*3/uL Nucleated RBC % (auto) 0.0 (0.0-0.2) /100WBC Hold Blue Top SEE NOTE Sodium 138 (135-145) mmol/L Potassium 3.5 D (3.3-5.1) mmol/L Chloride 107 (96-108) mmol/L Carbon Dioxide 23 (22-29) mmol/L Anion Gap 12 (12-20) BUN 11 (9-16) mg/dL Creatinine 0.63 (0.5-1.4) mg/dL Estim Creat Clear Calc 130.6 Estimated GFR > 60 Random Glucose 82 (60-115) mg/dL Calcium 9.0 D (8.4-10.2) mg/dL Magnesium 1.9 (1.6-2.6) mg/dL Total Bilirubin 0.4 (0.0-1.0) mg/dL Direct Bilirubin 0.2 (0.0-0.5) mg/dL AST 11 (5-31) U/L ALT 7 (0-31) U/L Alkaline Phosphatase 63 (39-117) U/L Troponin I High Sens (<3.5-17.0) ng/L Total Protein 6.7 (6.5-8.0) g/dL Albumin 3.9 (3.5-5.0) g/dL Lipase 9 (8-78) U/L Urine Test (NEGATIVE) 11/16/20 11/16/20 Range/Units 22:12 23:34 WBC (4.8-10.8) X10*3/uL RBC (4.20-5.50) X10*6/uL Hgb (12.0-16.0) g/dl Hct (37-47) % MCV (80-98) fL MCH (27.0-33.0) pg MCHC (31.0-35.0) g/dl RDW (11.0-16.0) % Plt Count (160-400) X10*3/uL MPV (9.4-12.3) fL Immature Gran % (Auto) (0.0-0.4) % Neut % (Auto) (45-73) % Lymph % (Auto) (20-40) % [place] % (Auto) (2-11) % Eos % (Auto) (0-4) % Baso % (Auto) (0-2) % Lymph # (Auto) (1.2-4.9) X10*3/uL [place] # (Auto) (0.1-1.2) X10*3/uL Eos # (Auto) (0.0-0.4) X10*3/uL Baso # (Auto) (0.0-0.2) X10*3/uL Abs Immat Gran (auto) (0.00-0.03) X10*3/uL Absolute Neuts (auto) (2.0-8.3) X10*3/uL Absolute Nucleated RBC (0.0-0.012) X10*3/uL Nucleated RBC % (auto) (0.0-0.2) /100WBC Hold Blue Top Sodium (135-145) mmol/L Potassium (3.3-5.1) mmol/L Chloride (96-108) mmol/L Carbon Dioxide (22-29) mmol/L Anion Gap (12-20) BUN (9-16) mg/dL Creatinine (0.5-1.4) mg/dL Estim Creat Clear Calc Estimated GFR Random Glucose (60-115) mg/dL Calcium (8.4-10.2) mg/dL Magnesium (1.6-2.6) mg/dL Total Bilirubin (0.0-1.0) mg/dL Direct Bilirubin (0.0-0.5) mg/dL AST (5-31) U/L ALT (0-31) U/L Alkaline Phosphatase (39-117) U/L Troponin I High Sens < 3.5 (<3.5-17.0) ng/L Total Protein (6.5-8.0) g/dL Albumin (3.5-5.0) g/dL Lipase (8-78) U/L Urine Test NEGATIVE (NEGATIVE) Discharge Plan Discharge Clinical Impression: Atypical chest pain, Chronic dyspnea Patient Disposition: Home, Self-Care Instructions: Chest Pain (ED), Dyspnea (ED) Additional Instructions: return to ED for any worsening symptoms or concerns CT/CT angio chest PE protocol IMPRESSION: 1. No evidence of pulmonary emboli. 2. 10 mm left lower lobe lung nodule with central calcification along with calcified left infrahilar lymph node consistent with granulomatous disease. VTE: negative Prescriptions: No Action ergocalciferol (vitamin D2) 1,250 mcg (50,000 unit) capsule 1,250 mcg PO QWEEK Qty: 4 RF: 3 Referrals: Helen Hankins MD [Primary Care Provider] - 2 days (possible sleep study vs. pulmonology referral) Stand Alone Forms: Work/School Release Interventions: ED Discharge Assessment Last Done: 11/17/20 01:15 Discharge Date/Time: 11/17/20 01:16
[2020-11-16 22:00] VITALS: BP 107/63; PULSE 86; RESP 18; TEMP 36.6; O2SAT 100
[2020-11-16 22:12] VITALS: PULSE 95
--- NOTE | 2020-11-16 22:14 | PC.NURSE ---
iv inserted, labs drawn, vss, cardiac cath lab technologist applied nsr [id number], will continue to monitor
[2020-11-16 22:19] LABS: MANUAL DIFF FLAG NO
[2020-11-16 22:20] LABS: Basophils Percent Auto 0.2 % (0-2); Eosinophils Absolute Auto 0.1 X10*3/uL (0.0-0.4); Eosinophils Percent Auto 0.5 % (0-4); Hemoglobin 11.8 g/dl (12.0-16.0); Imm Gran Abs Auto 0.02 X10*3/uL (0.00-0.03); Imm Gran Pct Auto 0.2 % (0.0-0.4); Lymphocytes Percent Auto 32.4 % (20-40); Mean Corpuscular HGB Conc 32.8 g/dl (31.0-35.0); Mean Corpuscular Hemoglobin 27.1 pg (27.0-33.0); Mean Corpuscular Volume 82.8 fL (80-98); Mean Platelet Volume 9.9 fL (9.4-12.3); Monocytes Absolute Auto 0.5 X10*3/uL (0.1-1.2); Monocytes Percent Auto 4.9 % (2-11); Neutrophils Absolute Auto 5.7 X10*3/uL (2.0-8.3); Neutrophils Percent Auto 61.8 % (45-73); Platelet Count 227 X10*3/uL (160-400); Red Blood Count 4.35 X10*6/uL (4.20-5.50); Red Cell Distribution Width 11.9 % (11.0-16.0); White Blood Count 9.3 X10*3/uL (4.8-10.8)
[2020-11-16 22:49] LABS: Alanine Aminotransferase 7 U/L (0-31); Albumin Level 3.9 g/dL (3.5-5.0); Alkaline Phosphatase 63 U/L (39-117); Anion Gap 12 (12-20); Aspartate Amino Transferase 11 U/L (5-31); Bilirubin Direct 0.2 mg/dL (0.0-0.5); Bilirubin Total 0.4 mg/dL (0.0-1.0); Blood Urea Nitrogen 11 mg/dL (9-16); Carbon Dioxide 23 mmol/L (22-29); Chloride 107 mmol/L (96-108); Creatinine Clr Calc Pharmacy 130.6; Estimated Glomerular Filt Rate > 60; Glucose Random 82 mg/dL (60-115); Lipase 9 U/L (8-78); Magnesium 1.9 mg/dL (1.6-2.6); Potassium 3.5 mmol/L (3.3-5.1); Sodium 138 mmol/L (135-145); Total Protein 6.7 g/dL (6.5-8.0)
[2020-11-16 22:55] LABS: Troponin-I High Sensitivity < 3.5 ng/L (<3.5-17.0)
[2020-11-16 23:32] VITALS: BP 113/64; PULSE 63; RESP 16; TEMP 36.7; O2SAT 99
[2020-11-16 23:42] LABS: UPreg QC Valid YES; Urine Pregnancy NEGATIVE (NEGATIVE)
--- NOTE | 2020-11-16 23:55 | PC.NURSE ---
PT SITTIG UP IN BED, SKIN PWD RESPIRATIONS EVEN UNLABORED. DENIES CHEST PAIN AT THIS TIME, REPORTS CONTINUED SOB. AWAITING CT, AWARE OF PLAN OF CARE.
[2020-11-16] MEDS: iohexoL 350 MG/ML 100 ML INFUS..BTL 65 ML IV (23:59)
== END 2020-11-17 01:16 | disposition home or self-care (01) ==
PROVIDERS: Emergency Provider Emergency Medicine; PCP Internal Medicine
DX: R07.89 Other chest pain (principal); R06.00 Dyspnea, unspecified; R91.8 Other nonspecific abnormal finding of lung field; R91.1 Solitary pulmonary nodule
CPT/HCPCS: 36415; 71275; 80048; 80076; 81025; 83690; 83735; 84484; 85025; 93005; 99284; Q9967

== ENCOUNTER → 2024-11-18 07:54 | Outpatient (BNVA) | payer OTHER, SELFPAY | PROVIDERS: PCP Internal Medicine ==

== ENCOUNTER 2025-04-02 15:36 | Outpatient (REF) | payer OTHER, SELFPAY ==
--- OUTSIDE RECORDS SUMMARY | 2025-04-02 15:15 | XMS_ITS | Encounter Summary ---
Author Organization [employer] Address [address] [place] [address] Care Team Providers Care Director Energy Name Role Phone Suleiman Cid MD Primary Care Prov ider Reason for Referral * Imaging (Routine) - Pending Review Specialty Diagnoses / Procedures Referred By Juliet calhoun Referred To Contact Radiology Diagnoses Right upper quadrant abdominal pain Procedures US Abdomen Complete Silverio Moon MD [address] [place] [address] Phone: tel: fax: Referral ID Status Reason Start Date Expiration Date V isits Requested Visits Authorized [id number] Pending Review 04/02/2025 04/02/2026 1 1 Reason for Visit * Reason Comments Abdominal Pain Encounter Details Date Type Department Care Team ([facility] Contact Info) Description 04/02/2025 3:15 PM EDT Office Visit [facility] MED & PEDS [address] [place] [address] Silverio Moon MD [address] [place] [address] Right upper quadrant abdominal pain (Primary Dx) Social History Tobacco Use Types Packs/Day Years Used Date Smoking Tobacco: Never Smokeless Tobacco: Never Alcohol Use Standard Drinks/Week Comments Yes 0 (1 standard drink = 0.6 oz pur e alcohol) 2 times a month Depression Answer Date Recorded Patient Health Questionnaire-9 Score 0 07/06/2024 Patient Health Questionnaire-9 Score 0 07/06/2024 Last PHQ-9: Questionnaire Data Not on file 1 09/06/2023 Depression Answer Date Recorded Patient Health Questionnaire-2 Score 0 07/06/2024 Comments Unknown Sex and Gender Information Value Date Recorded Sex Assigned at Female 06/04/2022 10:16 AM EDT Legal Sex Female 10:16 AM EDT Gender Identity Female 07/06/2024 12:27 PM EST Sexual Orientation Don't know 07/06/2024 12 :28 PM EST documented as of this encounter Last Filed Vital Signs Vital Sign Reading Time Taken Comments Blood Pressure 123/80 04/02/2025 3:10 PM EDT Pulse 88 04/02/2025 3:10 PM EDT Temperature 36.8 C (98.2 F) 04/02/2025 3:10 PM EDT Respiratory Rate 20 04/02/2025 3:10 PM EDT Oxygen Saturation 98% 04/02/2025 3:10 PM EDT Inhaled Oxygen Concentration - - Weight 94.8 kg (209 lb) 04/02/2025 3:10 PM EDT Height 162.6 cm (5' 4 ) 04/02/2025 3:10 PM EDT Body Mass Index 35.87 04/02/2025 3:10 PM EDT documented in this encounter Progress Notes * Silverio Moon MD - 04/02/2025 3:15 PM EDT SUBJECTIVE Thea Mckinley is a 29 y.o. female who presents for Abdominal Pain. Abdominal Pain This is a new problem. The current episode started 1 to 4 weeks ago. The onset quality is gradual. The problem occurs daily. The problem has been unchanged. The pain is located in the RUQ. The pain is mild. The quality of the pain is colicky. Pertinent negatives include no anorexia, arthralgias, belching, fever, flatus, frequency, melena, myalgias or nausea. Incoming call from Thea Mckinley . Reports having [facility] visit on 03/31. Pt states was recommended PCP office follow up. Pt left prior to being discharged. Pt did not get an imaging. Pt reports having abdominal with applied pressure to RUQ. Not present without applied pressure. Denies any N/V or diarrhea. Pt advised of disposition, agrees to sick onsite with team provider.Reviewed home care advise, ER precautions and reasons to call back. Patient is s/p cholecystectomy when she was 18 years old. Has an intermittent abdominal pain for the last 2 weeks exacerbated by pressure on the right upper quadrant. No associated skin rash. No other associated symptoms. No nausea vomiting diarrhea. No fever or other constitutional symptoms reported. The pain has been the same since it started. Problem List[1] Allergies[2] Medications Ordered Prior to Encounter[3] Review of Systems Constitutional: Negative for appetite change, chills, diaphoresis and fever. Eyes: Negative for photophobia, pain and redness. Respiratory: Negative for cough and choking. Gastrointestinal: Positive for abdominal pain. Negative for anorexia, flatus, melena and nausea. Genitourinary: Negative for frequency. Musculoskeletal: Negative for arthralgias and myalgias. OBJECTIVE Vitals: 04/02/25 1510 BP: 123/80 Pulse: 88 Resp: 20 Temp: 98.2 ??F (36.8 ??C) TempSrc: Oral SpO2: 98% Weight: 209 lb (94.8 kg) Height: 5' 4 (1.626 m) Physical Exam Constitutional: General: She is not in acute distress. Appearance: Normal appearance. She is obese. She is not ill-appearing, toxic- appearing or diaphoretic. Cardiovascular: Rate and Rhythm: Normal rate. Pulmonary: Effort: Pulmonary effort is normal. Abdominal: General: There is no distension. Palpations: Abdomen is soft. There is no mass. Tenderness: There is no abdominal tenderness. Hernia: No hernia is present. Neurological: Mental Status: She is alert. Assessment/Plan Assessment/Plan Diagnoses and all orders for this visit: Right upper quadrant abdominal pain - CBC auto differential; Future - Comprehensive Metabolic Panel; Future - Urinalysis, Complete, with Reflex to Culture; Future - US Abdomen Complete; Future - naproxen (Naprosyn) 500 MG tablet; Take 1 tablet (500 mg) by mouth 2 times daily. Workup ordered. Patient will be called with the results. Advised to push fluids. ED evaluation in case of fever, nausea, vomiting, or any other alarming symptoms. [1] Patient Active Problem List Diagnosis Encounter to establish care Thyroid nodule [2] No Known Allergies [3] No current outpatient medications on file prior to visit. No current facility-administered medications on file prior to visit. documented in this encounter Plan of Treatment Upcoming Encounters Date Type Department Care Team (Late st Contact Info) Description 06/16/2025 10:00 AM EST Office Visit [facility] ADULT DENTAL [address] [place] [address] [place], Jacquie [address] [place] [address] Scheduled Orders Name Type Priority Associated Diagnoses Orde r Schedule CBC auto differential Lab Routine Right upper quadrant abdominal pain Expected: 04/02/2025 (Approximate), Expires: 04/02/2026 Comprehensive Metabolic Panel Lab Routine Right upper quadrant abdominal pain Expected: 04/02/2025 (Approximate), Expires: 04/02/2026 Urinalysis, Complete, with Reflex to Culture Lab Routine Right upper quadrant abdominal pain Expected: 04/02/2025 (Approximate), Expires: 04/02/2026 US Abdomen Complete Imaging Routine Right upper quadrant abdominal pain Expected: 04/02/2025, Expires: 04/02/2026 documented as of this encounter Visit Diagnoses Diagnosis Right upper quadrant abdominal pain- Primary documented in this encounter Additional Health Concerns Assessment Noted Time PHQ-9 Depression Total Score: 0 07/06/20 1:47 PM EST documented as of this encounter Care Teams Director Energy Relationship Specialty Start Date End Date Suleiman Cid MD [address] [place] [address] PCP - General Internal Medicine 07/06/24 documented as of this encounter
--- OUTSIDE RECORDS SUMMARY | 2025-04-02 15:39 | XMS_ITS | Encounter Summary ---
Author Organization [facility] Address [address] [place] [address] Care Team Providers Care Pilot Safety Inspector Name Role Phone Suleiman Cid MD Primary Care Prov ider Encounter Details Date Type Department Care Team (Late st Contact Info) Description 07/13/2024 [facility] Health Information Management [address] [place], [place] [phone] Provider, MD Kaushik Social History Tobacco Use Types Packs/Day Years [...] PM EST documented as of this encounter Plan of Treatment Upcoming Encounters Date Type Department Care Team (Late st Contact Info) Description 06/16/2025 10:00 AM EST Office Visit [facility] ADULT DENTAL [address] [place], [place] [phone] Be[place]Jacquie [address] [place] [address] documented as of this encounter Procedures Procedure Name Priority Date/Time Associated Diagnosis Comments XR CHEST PA AND LATERAL Routine 07/04/2024 3:28 PM EST ECG 12-LEAD Routine 07/04/2024 3:25 PM EST documented in this encounter Results * XR CHEST PA AND LATERAL (07/04/2024 3:28 PM EST) Anatomical Region Laterality Modality Radiographic Lynette ging us Historical Provider IMG XR PROCEDURES Final R esult * ECG 12 lead (07/04/2024 3:25 PM EST) Historical Provider ECG ORDERABLES Final Res ult documented in this encounter Visit Diagnoses Not on filedocumented in this encounter Additional Health Concerns Assessment Noted Time PHQ-9 Depression Total Score: 0 07/06/20 24 1:47 PM EST documented as of this encounter Care Teams Pilot Safety Inspector Relationship Specialty Start Date End Date Suleiman Cid MD [address] [place] [address] PCP - General Internal Medicine 07/06/24 documented as of this encounter
--- OUTSIDE RECORDS SUMMARY | 2025-04-02 15:39 | XMS_ITS | Encounter Summary ---
Author Organization [employer] [facility] Address [address] [place] [address] Care Team Providers Care Fleet Sales Associate Name Role Phone Suleiman Cid MD Primary Care Prov ider Encounter Details Date Type Department Care Team (Latest Contact Info) Description 04/02/2025 Travel Social History Tobacco Use Types Packs/Day Years [...] Description 06/16/2025 10:00 AM EST Office Visit [facility] ADULT DENTAL [address] [place], [place] [phone] Abdullahi Patriciaaris [address] [place] [address] documented as of this encounter Visit Diagnoses Not on filedocumented in this encounter Additional Health Concerns Assessment Noted Time PHQ-9 Depression Total Score: 0 07/06/20 24 1:47 PM EST documented as of this encounter Care Teams Fleet Sales Associate Relationship Specialty Start Date End Date CentenoSuleiman Padron MD [address] [place] [address] PCP - General Internal Medicine 07/06/24 documented as of this encounter
--- OUTSIDE RECORDS SUMMARY | 2025-04-02 15:39 | XMS_ITS | Encounter Summary ---
Author Organization [employer] Address [address] [place] [address] Care Team Providers Care Orthodontist Name Role Phone Suleiman Cid MD Primary Care Prov ider Reason for Visit * Reason Onset Date Comments FYI 07/08/2024 Encounter Details Date Type Department Care Team ([facility] st Contact Info) Description 07/08/[address] [facility] MEDICINE [address] [place] [address] Suleiman Cid MD [address] [place] [address] FYI Social History Tobacco Use Types Packs/Day Years [...] PM EST documented as of this encounter Miscellaneous Notes * Telephone Encounter - Federico Colon - 07/08/2024 9:23 AM EST Tc from [facility] with [facility] informing they don't take the pt [employer] insurance for ultrasound. documented in this encounter Plan of Treatment Upcoming Encounters Date Type Department Care Team (Late st Contact Info) Description 06/16/2025 10:00 AM EST Office Visit [facility] ADULT DENTAL [address] [place] [address] [place], Jacquie [address] [place] [address] documented as of this encounter Visit Diagnoses Not on filedocumented in this encounter Additional Health Concerns Assessment Noted Time PHQ-9 Depression Total Score: 0 07/06/20 1:47 PM EST documented as of this encounter Care Teams Orthodontist Relationship Specialty Start Date End Date Suleiman Cid MD [address] [place] [id number] PCP - General Internal Medicine 07/06/24 documented as of this encounter
--- OUTSIDE RECORDS SUMMARY | 2025-04-02 15:39 | XMS_ITS | Clinical Summary ---
Author Organization [employer] Address [address] [place] [address] [address] [place] [address] Care Team Providers Care Guide Setter Name Role Phone Suleiman Cid MD Primary Care Prov ider Allergies No known active allergies Medications naproxen (Naprosyn) 500 MG tabletIndication s:Right upper quadrant abdominal pain Take 1 tablet (500 mg) by mouth 2 times daily. 20 tablet 04/02/2025 Active Active Problems Problem Noted Date Diagnosed Date Encounter to establish care 07/06/2024 Assessment & Plan (07/06/2024 2:13 PM EST): Last pcp follow up 1 1/2 year ago Hospitalization:- Er visit: 07/04 throat pain, ct scan performed and found incidentally with a thyroid nodule Pmhx: - Pshx: gallbladder 2017, right breast mass 2013 (benign results) All:- Meds:- Sexually active, using condom as contraception A1 Pap smear doen on 2022 Thyroid nodule 07/06/2024 Assessment & Plan (07/06/2024 2:15 PM EST): Will order a thyroid ultrasound for characterization of incidental thyroid nodule on ct scan Encounters Date Type Department Care Team Description 04/02/2025 3:15 PM EDT Office Visit [facility] & [facility]EDS [address] [place] [address] Silverio Moon MD Right upper quadrant abdominal pain (Primary Dx) 04/02/2025 Travel 04/02/2025 Telephone [facility] [address] [place] [address] Suleiman Cid MD Nurse Triage from Last 3 Months Family History Medical History Relation Name Comments No Known Problems Father No Known Problems Mother Cancer Mother's Brother Relation Name Status Comments Father Mother Mother's Brother Social History Tobacco Use Types Packs/Day Years Used Date Smoking Tobacco: Never Smokeless Tobacco: Never Tobacco Cessation:Counseling Given: Not Answered Alcohol Use Standard Drinks/Week Comments Yes 0 [...] Don't know 07/06/2024 12 :28 PM EST Last Filed Vital Signs Vital Sign Reading [...] Mass Index 35.87 04/02/2025 3:10 PM EDT Plan of Treatment Upcoming Encounters Date Type Department Care Team (Late st Contact Info) Description 06/16/2025 10:00 AM EST Office Visit [facility] ADULT DENTAL [address] [place] [address] Abdullahi Patriciaaris [address] [place] [address] Health Maintenance Due Date Last Done Comments HIV Screening 1996 SDOH Screening 1996 Alcohol/Substance Use Screening 2008 Family Planning (PISQ) 2011 HPV Vaccines (1 - 3-dose series) 2011 Hepatitis C Screening 2014 DTaP/Tdap/Td Vaccines (1 - Tdap) 2015 Hepatitis B Vaccines (1 of 3 - 19+ 3-dose series) 2015 Pap Smear 2017 COVID-19 Vaccine (1 - 2023-2 5 season) 2024 Influenza Vaccine (#1) 2025 Depression Screening 07/06/2025 07/06/2024, 07/06/2024 Tobacco Screening 07/06/2025 07/06/2024 Disability Screening 04/02/2026 04/02/2025 Zoster Vaccines (1 of 2) 2046 RSV Patients and Patients Aged 60 years or older (1 - 1-dose 75+ series) 2071 HIB Vaccines Aged Out No longer eligi ble based on patient's age to complete this topic Hepatitis A Vaccines Aged Out No long er eligible based on patient's age to complete this topic IPV Vaccines Aged Out No longer eligi ble based on patient's age to complete this topic Meningococcal B Vaccine Aged Out No l onger eligible based on patient's age to complete this topic Meningococcal Vaccine Aged Out No jerad luci eligible based on patient's age to complete this topic Pneumococcal Vaccine: Pediatrics (0 to 5 Years) and At-Risk Patients (6 to 49) Years Aged Out No longer eligible b ased on patient's age to complete this topic RSV under 20 months Aged Out No longe r eligible based on patient's age to complete this topic Rotavirus Vaccines Aged Out No longer eligible based on patient's age to complete this topic Insurance [facility] [employer] [facility] D[facility] - [facility] PARTIAL (MEDICAID) Care Teams Guide Setter Relationship Specialty Start Date End Date Suleiman Cid MD [address] [place] [phone] PCP - General Internal Medicine 07/06/24
--- OUTSIDE RECORDS SUMMARY | 2025-04-02 15:39 | XMS_ITS | Encounter Summary ---
Author Organization [employer] Address [address] [place] [address] Care Team Providers Care Brick Layer Name Role Phone Suleiman Cid MD Primary Care Prov ider Reason for Visit * Reason Onset Date Comments Nurse Triage 04/02/2025 Encounter Details Date Type Department Care Team ([facility] st Contact Info) Description 04/02/2025 Telephone [facility] MED & PEDS [address] [place], [place] [phone] Suleiman Cid MD [address] [place] [address] Nurse Triage Social History Tobacco Use Types Packs/Day Years [...] encounter Miscellaneous Notes * Telephone Encounter - Alicia Woodard RN - 04/02/2025 11:17 AM EDT Incoming call from Thea Mckinley . Reports [...] ER precautions and reasons to call back. Protocol Used: Abdominal Pain - Upper (Adult) Protocol-Based Disposition: See in Office or Video Visit Today Future Appointments Date Time Provider Department Center 04/02/2025 3:15 PM Silverio Moon MD [facility] 06/16/2025 10:00 AM Jacquie [facility] Insurance verified as active per Real Time Eligibility in [facility]. Video visit offer not recorded Positive Triage Question: * Patient wants to be seen * All higher-acuity triage questions were negative Care Advice Discussed: * Reassurance and Education - Stomach Pain * Reasons To Call Back - Severe pain present over 1 hour - Constant pain present over 2 hours - You become worse * Telephone Encounter - Alicia Woodard RN - 04/02/2025 11:04 AM EDT Call returned to Thea Mckinley at [phone] for triage below. No answer LVM to return call to [facility] triage line [phone]. * Telephone Encounter - José Manuel Miller - 04/02/2025 10:45 AM EDT Patient calling to report ED visit on : Date: 03/31 Hospital: [facility] Seen for: abdominal pain (found lump in stomach) Symptomatic Yes *if yes message should go to Triage Patient advised will forward to team nurse for follow up documented in this encounter Plan of Treatment Upcoming Encounters Date Type Department Care Team (Late st Contact Info) Description 06/16/2025 10:00 AM EST Office Visit [facility] ADULT DENTAL [address] [place] [address] Jacquie Patricia [address] [place] [address] documented as of this encounter Visit Diagnoses Not on filedocumented in this encounter Additional Health Concerns Assessment Noted Time PHQ-9 Depression Total Score: 0 07/06/20 1:47 PM EST documented as of this encounter Care Teams Brick Layer Relationship Specialty Start Date End Date Suleiman Cid MD [address] [place] [address] PCP - General Internal Medicine 07/06/24 documented as of this encounter
--- OUTSIDE RECORDS SUMMARY | 2025-04-02 15:39 | XMS_ITS | Clinical Summary ---
Author Organization [facility] [place] [address] Phone Care Team Providers Care Facsimile Operator Name Role Phone Suleiman Cid Primary Care Provide r Allergies No known active allergies Medical History Medical History Date Comments No known health problems Social History Tobacco Use Types Packs/Day Years Used Date Smoking Tobacco: Never Assessed Comments Unknown Sex and Gender Information Value Date Recorded Sex Assigned at Female 07/04/2024 10:17 PM EST Legal Sex Female 9:36 PM EST Gender Identity Female 07/04/2024 10:17 PM EST Sexual Orientation Not on file Obstetrics History Last Filed Vital Signs Vital Sign Reading Time Taken Comments Blood Pressure 119/58 07/05/2024 1:43 AM EST Pulse 71 07/05/2024 1:43 AM EST Temperature 36.4 C (97.5 F) 07/05/2024 1:43 AM EST Respiratory Rate 16 07/05/2024 1:43 AM EST Oxygen Saturation 98% 07/05/2024 1:43 AM EST Inhaled Oxygen Concentration - - Weight 87.1 kg (192 lb) 07/04/2024 9:41 PM EST Height 162.6 cm (5' 4 ) 07/04/2024 9:41 PM EST Body Mass Index 32.96 07/04/2024 9:41 PM EST Plan of Treatment Health Maintenance Due Date Last Done Comments DTaP,Tdap,and Td Vaccines (1 - Tdap) 2015 Hepatitis B Vaccines (1 of 3 - 19+ 3-dose series) 2015 Cervical Cancer Screening: P ap Smear 2017 COVID-19 Vaccine (2023-2 5 season) 2024 HIV Screening 07/04/2024 Hepatitis C Screening 07/04/2024 Social Influencers of Health Screening 07/04/2024 Depression Screening 08/05/2024 Influenza Vaccine (#1) 2025 HIB Vaccines Aged Out No longer eligi ble based on patient's age to complete this topic HPV Vaccines Aged Out No longer eligi ble based on patient's age to complete this topic Hepatitis A Vaccines Aged Out No long er eligible based on patient's age to complete this topic IPV Vaccines Aged Out No longer eligi ble based on patient's age to complete this topic MMR Vaccines Aged Out No longer eligi ble based on patient's age to complete this topic Meningococcal ACWY Vaccine Aged Out N o longer eligible based on patient's age to complete this topic Meningococcal B Vaccine Aged Out No l onger eligible based on patient's age to complete this topic Pneumococcal Vaccine: Pediat rics (0 to 5 Years) and At-Risk Patients (6 to 49 Years) Aged Out No longer eligible b ased on patient's age to complete this topic RSV Immunization Patients Un zaki 20 months Aged Out No longer eligible b ased on patient's age to complete this topic Varicella Vaccines Aged Out No longer eligible based on patient's age to complete this topic Insurance [facility] Care Teams Facsimile Operator Relationship Specialty Start Date End Date Suleiman Cid [address] [place] [address] PCP - General Internal Medicine 07/04/24
[2025-04-02 17:26] LABS: MANUAL DIFF FLAG NO
[2025-04-02 17:35] LABS: Hematocrit 37.0 % (37.0-47.0); Hemoglobin 11.7 g/dl (12.0-16.0); Imm Gran Abs Auto 0.02 X10*3/uL (0.00-0.03); Imm Gran Pct Auto 0.2 % (0.0-0.4); Lymphocytes Absolute Auto 2.5 X10*3/uL (1.2-4.9); Mean Corpuscular HGB Conc 31.6 g/dl (31.0-35.0); Mean Corpuscular Hemoglobin 25.7 pg (27.0-33.0); Mean Corpuscular Volume 81.1 fL (80.0-98.0); NRBC Abs Auto 0.000 X10*3/uL (0.0-0.012); NRBC Pct Auto 0.0 /100WBC (0.0-0.2); Platelet Count 330 X10*3/uL (160-400); Red Blood Count 4.56 X10*6/uL (4.20-5.50); White Blood Count 8.4 X10*3/uL (4.8-10.8)
[2025-04-02 18:28] LABS: Appearance Urine Clear; Glucose Urine UA Negative (Negative); PH 6.0 (5.0-9.0); Specific Gravity - Urine 1.025 (1.005-1.025)
[2025-04-02 18:37] LABS: Alanine Aminotransferase 12 U/L (0-31); Albumin Level 4.4 g/dL (3.5-5.0); Alkaline Phosphatase 75 U/L (39-117); Anion Gap 11 (12-20); Aspartate Amino Transferase 18 U/L (5-31); Blood Urea Nitrogen 18 mg/dL (9-16); Calcium 9.0 mg/dL (8.4-10.2); Carbon Dioxide 25 mmol/L (22-29); Chloride 107 mmol/L (96-108); Estimated Glomerular Filt Rate > 60; Potassium 3.8 mmol/L (3.3-5.1); Sodium 139 mmol/L (135-145); Total Protein 8.0 g/dL (6.5-8.0)
== END 2025-04-02 15:37 | disposition home or self-care (01) ==
LOC: HO.CHCLDS 15:36
PROVIDERS: Visit Provider Internal Medicine
DX: R10.11 Right upper quadrant pain (principal)
CPT/HCPCS: 36415; 80053; 81001; 85025